=== PATIENT | male | born 1970 | race Caucasian/White ===

== ENCOUNTER 2020-04-14 13:24 | Outpatient (REF) | payer MEDICARE, MEDICAID, SELFPAY | END 2020-04-14 13:25 | disposition home or self-care (01) | LOC: HO.LAB 13:24 | PROVIDERS: Visit Provider Internal Medicine | DX: Z20.822 Contact with and (suspected) exposure to COVID-19 (principal) | CPT/HCPCS: 36415; C9803; U0003 ==

== ENCOUNTER 2020-04-27 12:54 | Outpatient (REF) | payer MEDICARE, MEDICAID, SELFPAY | END 2020-04-27 12:55 | disposition home or self-care (01) | LOC: HO.LAB 12:54 | PROVIDERS: Visit Provider Internal Medicine | DX: Z20.822 Contact with and (suspected) exposure to COVID-19 (principal) | CPT/HCPCS: 36415; C9803; U0003; U0005 ==

== ENCOUNTER 2024-04-18 15:25 | Emergency (ER) | payer MEDICARE, MEDICAID, SELFPAY ==
[2024-04-18 15:40] VITALS: BP 160/117; PULSE 89; RESP 20; TEMP 36.7; O2SAT 97; BMI 27.5
--- NOTE | 2024-04-18 15:41 | ED_ITS ---
HPI - General Adult General Chief complaint: General Medical Stated complaint: EPISTAXIS Time Seen by Provider: 04/18/24 15:34 Source: patient Mode of arrival: EMS Limitations: no limitations History of Present Illness HPI narrative: This is a 54-year-old man with a past medical history of CVA on aspirin who presents for evaluation of epistaxis. The patient states having left-sided nosebleed today. Patient states taking no anticoagulants. The patient states no trauma. Patient states no recent febrile illness. He states no chest pain, dyspnea, lightheadedness, loss of consciousness or weakness. Related Data Allergies Allergy/AdvReac Type Severity Reaction Status Date / Time No Known Allergies Allergy Verified 04/18/24 15:42 Review of Systems Review of Systems: ROS as per [facility] Social History Social History Advance Directives: No Advance Directives Information Provided: No Physical Exam ED Vital Signs: Vital Signs - 24 hr 04/18/24 15:40 Temperature 98.1 F Pulse Rate 89 Respiratory Rate 20 Blood Pressure 160/117 H Pulse Oximetry 97 Oxygen Delivery Method Room Air BMI result Body Mass Index 27.5 Gen: NAD, AOx3 HEENT: NCAT, EOMI, normal conjunctiva, +left-sided epistaxis CV: RRR Pulm: CTAB GI: Soft, NTND Neuro: Grossly non focal Medications Administered Discontinued Medications Generic Name Dose Route Start Last Admin Trade Name Freq PRN Reason Stop Dose Admin Tranexamic Acid 500 mg 04/18/24 15:41 04/18/24 15:58 Tranexamic Acid 1,000 Mg/10 Ml Vial INTRANASAL 04/18/24 15:42 500 mg ONCE ONE Administration Medical Decision Making Medical Decision Making [facility] Narrative: Patient examined with light and nasal speculum. Clots cleared by patient blowing and using wall suction. Left naris packed with cotton ball soaked with 5cc of tranexamic acid (500mg). After about 20-30 minutes, packing was removed. Naris was repacked with 5.5cm balloon pack soaked with 5cc of tranexamic acid (500mg). The balloon was filled with 10cc of air. After 20 minutes, there was no visible active bleeding within the naris. The posterior pharynx showed dried blood, which cleared after patient gargled with water. On discharge, there was no active bleeding. Patient was given educational materiala. Patient was given armando bal and written instructions. Teach back was performed. Patient was given strict return precautions to return to the ED for any new or worsening symptoms including, but not limited to recurrence of epistaxis, lightheadedness, loss of consciousness, chest pain or dyspnea. Patient is advised to return to the ED or an urgent care in 48 hours for nasal packing removal. Patient was advised to follow up with their primary care provider within the next 5-7 days. Patient stated understanding the plan of care and stated their agreement with it. Patient was discharged home in stable and improved condition. Admission/Observation Consideration of admission/observation: Escalation of care including admission/observation considered Discharge Plan Discharge Clinical Impression: Epistaxis Patient Disposition: Home, Self-Care Instructions: Nosebleed (ED) Additional Instructions: You were seen and evaluated in the emergency room. Your vital signs were reassuring. Your nosebleed was stopped with nasal packing. Please return to the emergency room or urgent care for removal of your nasal packing in 2 days on April 20, 2024. Please follow-up with your primary care doctor in the next 5-7 days. ? Please return to the emergency room if you develop any worsening symptoms. Print Language: Ukrainian
[2024-04-18] MEDS: Tranexamic Acid 1,000 MG/10 ML VIAL 500 MG INTRANASAL (15:58)
[2024-04-18 17:09] VITALS: BP 154/92; PULSE 70; RESP 20; TEMP 36.1; O2SAT 97
== END 2024-04-18 17:09 | disposition home or self-care (01) ==
PROVIDERS: Emergency Provider Emergency Medicine
DX: R04.0 Epistaxis (principal)
CPT/HCPCS: 99282